=== PATIENT | male | born 1945 | race Caucasian/White ===

== ENCOUNTER 2017-04-18 17:13 | Emergency (ER) | payer MEDICARE, BC ==
[~2017-04-18] VITALS: Ht 180.3 cm; Wt 90.7 kg
--- NOTE | 2017-04-18 17:15 | NUR ---
PATIENT TO ED DT CHESTPAIN, ACHING, 10/20, NON RADIATING X YESTERDAY. PT IS AAO4. APPEARS IN NO APPARENT DISTRESS. RESPIRATION EVEN AND UNLABORED. SKIN IS WARM TO TOUCH AND NON DIAPHORETIC,.. AFEBRILE. GOWNED PT AND PLACED ON TELE MONITOR,.
--- NOTE | 2017-04-18 17:26 | NUR ---
MD WALTERS AT BEDSIDE
[2017-04-18] MEDS ORDERED: IV NS 0.9% 500 ML BAG IV ONE (17:30)
[2017-04-18] MEDS ORDERED: ASPIRIN 325 MG TABLET PO ONE (17:30)
[2017-04-18] MEDS ORDERED: ASPIRIN 325 MG TABLET ONE (17:31)
[2017-04-18 17:45] LABS: BASOPHILS # (AUTO) 0.1 /CMM (0.0-0.2); BASOPHILS % (AUTO) 0.6 % (0.0-2.0); EOSINOPHILS # (AUTO) 0.2 /CMM (0.0-0.7); EOSINOPHILS % (AUTO) 1.7 % (0.0-6.0); HEMATOCRIT 43 % (39-51); HEMOGLOBIN 14.3 g/dL (13.5-17.5); LYMPHOCYTES # (AUTO) 3.4 /CMM (0.8-4.8); LYMPHOCYTES % (AUTO) 27.9 % (20.0-44.0); MEAN CORPUSCULAR HEMOGLOBIN 32 PG (26.0-33.0); MEAN CORPUSCULAR HGB CONC 34 g/dl (31.0-36.0); MEAN CORPUSCULAR VOLUME 97 fL (80-96); MONOCYTES % (AUTO) 8.4 % (2.0-12.0); NEUTROPHILS # (AUTO) 7.6 /CMM (1.8-8.9); NEUTROPHILS % (AUTO) 61.4 % (43.0-81.0); PLATELET COUNT (AUTO) 229 /CMM (150-450); RDW COEFFICIENT OF VARIATION 13.4 (11.5-15.0); RED BLOOD CELL COUNT(AUTO) 4.41 MIL/uL (4.5-6.0); WHITE BLOOD COUNT (AUTO) 12.3 K/uL (4.3-11.0)
[2017-04-18] MEDS ORDERED: VERA180T25 PO (18:01)
[2017-04-18] MEDS ORDERED: SIMV20TA6 PO (18:01)
[2017-04-18] MEDS ORDERED: LOSA100T15 PO (18:01)
[2017-04-18] MEDS ORDERED: CARB-93 PO (18:01)
[2017-04-18 18:06] LABS: INR 0.97 (0.87-1.13); PROTHROMBIN TIME 10.1 SECS (9.5-12.7)
[2017-04-18 18:12] LABS: CALCIUM, SERUM 9.8 mg/dL (8.5-10.1); CARBON DIOXIDE 29 mmol/L (21-32); CHLORIDE 106 mmol/L (98-107); CREATININE 0.8 mg/dL (0.6-1.3); GLUCOSE 97 mg/dL (74-106); POTASSIUM 4.1 mmol/L (3.5-5.1); SODIUM SERUM 140 mmol/L (136-145); UREA NITROGEN, BLOOD 15 mg/dL (7-18)
[2017-04-18 18:19] LABS: TROPONIN I < 0.017 ng/mL (0.00-0.056)
[2017-04-18 18:24] LABS: B-TYPE NATRIURETIC PEPTIDE 126 PG/ML (0-125)
[2017-04-18 18:45] VITALS: BP 176/86
--- NOTE | 2017-04-18 18:54 | NUR ---
IV removed. Catheter intact and site benign. Pressure and 4x4 applied to site. No bleeding noted.Patient discharged to home in stable condition. Written and verbal after care instructions given. Patient verbalizes understanding of instruction.
== END 2017-04-18 18:56 | disposition home or self-care (01) ==
LOC: ER 17:14
DX: R07.89 Other chest pain (principal); R10.13 Epigastric pain; E78.00 Pure hypercholesterolemia, unspecified; F41.9 Anxiety disorder, unspecified; I10 Essential (primary) hypertension; I48.92 Unspecified atrial flutter; R06.02 Shortness of breath; Z53.20 Procedure and treatment not carried out because of patient's decision for unspecified reasons
CPT/HCPCS: 36415; 71010-TC; 80048-TC; 83690-TC; 83880; 84484-TC; 85025-TC; 85730-TC; A4606; J7040; Z7610

== ENCOUNTER 2024-09-10 13:03 | Emergency (ER) | payer MEDICARE, BC ==
[~2024-09-10] VITALS: Ht 180.3 cm; Wt 88.5 kg
[~2024-09-10 13:03] MED LIST: CARB-93 PO; LOSA100T31 PO; SIMV-46 PO; VERA180T25 PO
[2024-09-10] MEDS ORDERED: ONDANSETRON HCL/PF 4 MG/2 ML VIAL ONE (14:00)
[2024-09-10] MEDS ORDERED: MORPHINE SULFATE INJ 4 MG/ML DISP.SYRIN ONE (14:00)
[2024-09-10] MEDS: ONDANSETRON HCL/PF - ER 4 MG/2 ML VIAL IV ONE (14:01)
[2024-09-10] MEDS: MORPHINE SULFATE INJ 2 MG/ML DISP.SYRIN IV ONE (14:02)
[2024-09-10] MEDS ORDERED: PROPOFOL 20 ML IV ONE (14:44)
[2024-09-10] MEDS: PROPOFOL 200 MG/20 ML VIAL IV ONE (14:48)
[2024-09-10 16:08] VITALS: BP 152/84; TEMP 98.5; O2SAT 94
== END 2024-09-10 16:09 | disposition home or self-care (01) ==
LOC: ER 13:06
DX: S43.004A Unspecified dislocation of right shoulder joint, initial encounter (principal); E78.00 Pure hypercholesterolemia, unspecified; G20.A1 Parkinson's disease without dyskinesia, without mention of fluctuations; I10 Essential (primary) hypertension; W01.0XXA Fall on same level from slipping, tripping and stumbling without subsequent striking against object, initial encounter; Y93.89 Activity, other specified; Y92.89 Other specified places as the place of occurrence of the external cause; Y99.8 Other external cause status
CPT/HCPCS: 99285; 23650; 96374; 96375; 99152; 73060; 73030 ×2; J2704; J2270; J2405 ×2; G0500